=== PATIENT | male | born 1990 | race Two or more races ===

== ENCOUNTER 2019-01-27 20:41 | Emergency (ER) | payer OTHER ==
[~2019-01-27] VITALS: Ht 177.8 cm; Wt 90.7 kg
--- NOTE | 2019-01-27 20:45 | NUR ---
C/C L MID BACK PAIN WHEN LAYING DOWN, +PAIN ON INHALATION [id number], CT ABD TODAY. NAD NOTED. PT AAO X4 AMB WITH STEADY GAIT. RR EVEN AND UNLABORED.
[2019-01-27 20:54] VITALS: BP 128/74
== END 2019-01-27 21:24 | disposition home or self-care (01) ==
LOC: ER 20:44
DX: M54.6 Pain in thoracic spine (principal); G89.29 Other chronic pain; F10.10 Alcohol abuse, uncomplicated; Y90.9 Presence of alcohol in blood, level not specified; Z98.890 Other specified postprocedural states; Z60.2 Problems related to living alone